=== PATIENT | male | born 1995 | race Hispanic/Latino ===

== ENCOUNTER 2024-03-07 22:37 | Observation (INO) | payer BC ==
[~2024-03-07] VITALS: Ht 172.7 cm; Wt 85.0 kg
[2024-03-07 23:08] LABS: BASOPHILS # (AUTO) 0.01 K/uL (0.00-0.20); BASOPHILS % (AUTO) 0.2 % (0.0-5.0); EOSINOPHILS # (AUTO) 0.05 K/uL (0.00-0.70); HEMATOCRIT 42.9 % (42-54); IMMATURE GRANULOCYTE ABSOLUTE 0.01 K/uL (0-1); LYMPHOCYTES # (AUTO) 1.3 K/uL (1.0-4.8); LYMPHOCYTES % (AUTO) 24.8 % (21.0-51.0); MEAN CORPUSCULAR HEMOGLOBIN 28.7 pg (27.0-33.0); MEAN CORPUSCULAR HGB CONC 33.6 g/dL (32.0-36.0); MEAN CORPUSCULAR VOLUME 85.5 fL (79-99); MONOCYTES # (AUTO) 0.5 K/uL (0.1-1.0); MONOCYTES % (AUTO) 8.9 % (3.0-13.0); NEUTROPHILS # (AUTO) 3.3 K/uL (1.8-7.7); NEUTROPHILS % (AUTO) 64.9 % (40.0-77.0); PLATELET COUNT (AUTO) 163 K/uL (130-400); RED BLOOD CELL COUNT(AUTO) 5.02 MIL/uL (4.50-6.20); RED CELL DISTRIBUTION WIDTH 13.3 % (11.0-15.5)
[2024-03-07 23:16] LABS: CREATININE 1.1 mg/dL (0.5-1.3); POTASSIUM 3.3 mmol/L (3.5-5.1)
[2024-03-07 23:21] LABS: ALBUMIN 3.6 g/dL (3.5-5.0); BILIRUBIN,TOTAL 0.4 mg/dL (0.2-1.0); MAGNESIUM 1.9 mg/dL (1.80-2.40); TOTAL PROTEIN, SERUM 7.2 g/dL (6.0-8.3)
[2024-03-08] VITALS (8 sets, daily range): BP systolic 117–130; BP diastolic 65–91; PULSE 51–61; RESP 18–20; O2SAT 99–100
[2024-03-08 00:32] LABS: ADD UA MICROSCOPIC YES; APPEARANCE,URINE CLEAR (CLEAR); BILIRUBIN,URINE NEGATIVE (NEGATIVE); COLOR,URINE LIGHT-YELLOW (YELLOW); GLUCOSE, URINE (UA) 500 mg/dL (NEGATIVE); KETONES,URINE 10 mg/dL (NEGATIVE); LEUKOCYTE ESTERASE ,URINE NEGATIVE Leu/uL (NEGATIVE); NITRATE,URINE NEGATIVE (NEGATIVE); OCCULT BLOOD,URINE NEGATIVE (NEGATIVE); PH,URINE 6.5 (5.0-8.0); PROTEIN,URINE 10 mg/dL (NEGATIVE)
[2024-03-08 00:35] LABS: BACTERIA,URINE RARE /HPF (None Seen); MUCUS,URINE RARE LPF (None Seen); WBC,URINE 0-1 /HPF (0-1)
[2024-03-08 01:22] LABS: AMPHET/METH SCREEN,URINE NEGATIVE (NEGATIVE); BARBITURATE SCREEN, URINE NEGATIVE (NEGATIVE); BENZODIAZEPINES SCREEN,URINE NEGATIVE (NEGATIVE); CANNABINOID SCREEN,URINE NEGATIVE (NEGATIVE); COCAINE SCREEN,URINE NEGATIVE (NEGATIVE); OPIATE SCREEN,URINE NEGATIVE (NEGATIVE); PHENCYCLIDINE SCREEN,URINE NEGATIVE (NEGATIVE)
[2024-03-08 01:34] LABS: AMPHET/METH SCREEN,URINE NEGATIVE (NEGATIVE); BARBITURATE SCREEN, URINE NEGATIVE (NEGATIVE); BENZODIAZEPINES SCREEN,URINE NEGATIVE (NEGATIVE); CANNABINOID SCREEN,URINE NEGATIVE (NEGATIVE); COCAINE SCREEN,URINE NEGATIVE (NEGATIVE); OPIATE SCREEN,URINE NEGATIVE (NEGATIVE); PHENCYCLIDINE SCREEN,URINE NEGATIVE (NEGATIVE)
[2024-03-08] MEDS ORDERED: POTASSIUM CHLORIDE 10% ELIXIR 20 MEQ/15 ML UDCUP PO PRN (02:30)
[2024-03-08] MEDS ORDERED: ACETAMINOPHEN 325 MG TAB PO PRN ×2 (02:30)
[2024-03-08] MEDS ORDERED: POTASSIUM CHLORIDE 20MEQ/100ML 100 ML IV PRN ×2 (02:30)
[2024-03-08] MEDS ORDERED: NITROGLYCERIN 0.4 MG SL TAB SL PRN (02:30)
[2024-03-08] MEDS ORDERED: ONDANSETRON 4MG INJ IV PRN (02:30)
[2024-03-08] MEDS: KCL 20 MEQ ERTAB PO PRN (03:32)
[2024-03-08] MEDS: 0.9%NACL 1000ML 1,000 ML IV SCH (03:33)
[2024-03-08] MEDS: NITROGLYCERIN 1GM OINT 1 INCH/1GM TD SCH (03:33)
[2024-03-08] MEDS: MAGNESIUM 2GM PREMIX 50ML 50 ML IV PRN (04:25)
[2024-03-08] MEDS ORDERED: APIX5TAB PO (05:02)
[2024-03-08] MEDS ORDERED: SOTA80TA PO (05:02)
[2024-03-08 05:17] LABS: HEMOGLOBIN A1C 5.5 % (4.0-6.0)
[2024-03-08 05:19] LABS: ALBUMIN 3.6 g/dL (3.5-5.0); BILIRUBIN,TOTAL 0.6 mg/dL (0.2-1.0); CREATININE 0.9 mg/dL (0.5-1.3); POTASSIUM 3.5 mmol/L (3.5-5.1); THYROID STIMULATING HORMONE 1.61 uIU/mL (0.36-3.74); TOTAL PROTEIN, SERUM 7.1 g/dL (6.0-8.3)
[2024-03-08] MEDS ORDERED: SOTALOL HCL 80 MG TABLET PO SCH (09:00)
[2024-03-08] MEDS: CLOPIDOGREL 75MG TAB PO SCH (09:00)
[2024-03-08] MEDS: FAMOTIDINE 20MG VIAL IV SCH (09:52)
[2024-03-08] MEDS: ASPIRIN 81 MG EC TAB PO SCH (09:52)
[2024-03-08] MEDS: APIXABAN 5 MG TABLET PO SCH (09:53)
[2024-03-08] MEDS: SOTALOL HCL 80 MG TABLET PO SCH (14:23)
[2024-03-09] VITALS (8 sets, daily range): BP systolic 106–149; BP diastolic 57–74; PULSE 44–60; RESP 18–20; O2SAT 95–100
[2024-03-09] MEDS: KETOROLAC 30MG VIAL (30MG/ML) IVP ONE (23:08)
[2024-03-10] VITALS: BP 118/71; PULSE 58; RESP 18
[2024-03-10 04:00] VITALS: BP 120/62; PULSE 82; RESP 18
[2024-03-10 07:30] VITALS: O2SAT 98
[2024-03-10 07:59] VITALS: BP 112/65; PULSE 57; RESP 16
[2024-03-10 11:00] VITALS: BP 121/78; PULSE 58; RESP 16
== END 2024-03-10 11:47 | disposition home or self-care (01) ==
LOC: EDH 22:37 → INTOOBSV 03-08 02:05 → EDHIP 03-08 02:05 → 2AH 03-08 03:17
PROVIDERS: ADMIT Internal Medicine; ATTEND Internal Medicine
DX: U07.1 COVID-19 (principal); R07.89 Other chest pain; E87.6 Hypokalemia; R73.9 Hyperglycemia, unspecified; I10 Essential (primary) hypertension; E78.5 Hyperlipidemia, unspecified; I48.0 Paroxysmal atrial fibrillation; I35.1 Nonrheumatic aortic (valve) insufficiency; I45.10 Unspecified right bundle-branch block; I25.2 Old myocardial infarction; Z79.01 Long term (current) use of anticoagulants; Z79.82 Long term (current) use of aspirin; Z86.718 Personal history of other venous thrombosis and embolism; Z86.73 Personal history of transient ischemic attack (TIA), and cerebral infarction without residual deficits; Z79.02 Long term (current) use of antithrombotics/antiplatelets; Z95.810 Presence of automatic (implantable) cardiac defibrillator; Z87.74 Personal history of (corrected) congenital malformations of heart and circulatory system; Z90.49 Acquired absence of other specified parts of digestive tract; Z95.1 Presence of aortocoronary bypass graft; Z86.16 Personal history of COVID-19; Z95.2 Presence of prosthetic heart valve; Z95.5 Presence of coronary angioplasty implant and graft; Z79.899 Other long term (current) drug therapy
CPT/HCPCS: 82550 ×2; 83735 ×2; 84484 ×4; 80053 ×2; 85025; 71045; 93005 ×4; 96376 ×3; 96361 ×2; 96365; 96366; 96375 ×2; 99285; 83036; 84443; 80061; 80305 ×2; 85651; 82948 ×7; 87426; 81001; 36415 ×2; 71250; 93306; 93970; J3475; J3490 ×4; J1885; G0378 ×2